=== PATIENT | male | born 1965 ===

== ENCOUNTER 2022-03-06 08:44 | Day surgery (SDC) | payer BC ==
[~2022-03-06] VITALS: Ht 193 cm; Wt 126.5 kg
== END 2022-03-06 10:49 | disposition home or self-care (01) ==
LOC: ORSCSDS 08:44
PROVIDERS: Student in an Organized Health Care Education/Training Program
PROC: 0DBN8ZX Excision of Sigmoid Colon, Via Natural or Artificial Opening Endoscopic, Diagnostic (ICD-10-PCS; principal; 2022-03-06 10:00)
PROC: 0DBL8ZX Excision of Transverse Colon, Via Natural or Artificial Opening Endoscopic, Diagnostic (ICD-10-PCS; principal; 2022-03-06 10:00)
DX: Z12.11 Encounter for screening for malignant neoplasm of colon (principal); K63.5 Polyp of colon; K57.30 Diverticulosis of large intestine without perforation or abscess without bleeding; Z87.891 Personal history of nicotine dependence
CPT/HCPCS: 88305; J2704; J7120